=== PATIENT | female | born 1970 | race Caucasian/White ===

== ENCOUNTER 2022-06-23 15:35 | Inpatient (IN) | payer MEDICAID ==
[~2022-06-23] VITALS: Ht 160 cm; Wt 73.0 kg
[2022-06-23 15:37] VITALS: BP 117/72
--- NOTE | 2022-06-23 15:42 | NUR ---
CANDACE GUTIERREZ, VIA GURNEY TO BED 05.
--- NOTE | 2022-06-23 15:42 | NUR ---
DR PERALES AT BEDSIDE EVALUATING PT
[2022-06-23 16:00] LABS: BASOPHILS % (AUTO) 0.3 % (0.0-2.0); EOSINOPHILS % (AUTO) 0.4 % (0.0-4.0); HEMOGLOBIN 14.4 g/dL (12.0-16.0); LYMPHOCYTES # (AUTO) 0.6 K/uL (2.5-16.5); LYMPHOCYTES % (AUTO) 13.1 % (20.5-51.1); MEAN CORPUSCULAR HEMOGLOBIN 30 pg (27-31); MEAN CORPUSCULAR HGB CONC 34 g/dL (33-37); MEAN CORPUSCULAR VOLUME 86.3 fL (80-94); MONOCYTES # (AUTO) 0.3 K/uL (0.8-1.0); NEUTROPHILS # (AUTO) 3.8 K/uL (1.8-7.7); NEUTROPHILS % (AUTO) 79.2 % (42.2-75.2); PLATELET COUNT (AUTO) 300 K/uL (140-450); RED BLOOD CELL COUNT(AUTO) 4.87 MIL/uL (4.20-5.40); RED CELL DISTRIBUTION WIDTH 14.8 % (11.6-13.7); WHITE BLOOD COUNT (AUTO) 4.8 K/uL (4.8-10.8)
--- NOTE | 2022-06-23 16:00 | NUR ---
IV started, blood work obtained, handed to CPT Corrie at bedside.
[2022-06-23 16:25] LABS: ALBUMIN 3.5 g/dL (3.4-5.0); ANION GAP 10.8 (8-16); ASPARTATE AMINOTRANSFERASE 50 U/L (15-37); CARBON DIOXIDE 28.8 mmol/L (21-32); CHLORIDE 103 mmol/L (98-107); CREATININE 0.9 mg/dL (0.6-1.3); GFR ARICAN-AMERICAN 85 mL/min (>90); GLUCOSE 111 mg/dL (74-106); POTASSIUM 3.6 mmol/L (3.5-5.1); SODIUM SERUM 139 mmol/L (136-145); TOTAL BILIRUBIN 0.8 mg/dL (0.0-1.0); UREA NITROGEN, BLOOD 17 mg/dL (7-18)
--- NOTE | 2022-06-23 19:20 | NUR ---
Pt report given to ANTONELLA Allen. Transfer of care at this time.
--- NOTE | 2022-06-23 19:50 | NUR ---
SPOKE TO DARRIAN PATIENTS DAUGHTER [phone] AND UPDATED ON PATIENTS STATUS. PATIENT RQ HER CELLPHONE AND SANDALS.
--- NOTE | 2022-06-23 19:55 | NUR ---
SWAB COLLECTED AND WALKED TO LAB
--- NOTE | 2022-06-23 21:57 | NUR ---
Patient's daughter given her cell phone , zig zag spring machine operator and sandal to patient.
--- NOTE | 2022-06-23 22:18 | NUR ---
TAZ PERALES EVALUATING PATIENT.
[2022-06-23 22:22] VITALS: BP 105/44
[2022-06-23] MEDS ORDERED: SODIUM PHOS / POTASSIUM PHOS 1 PKT PDR PO PRN (22:45)
[2022-06-23] MEDS ORDERED: POTASSIUM CHLORIDE 10 MEQ TABER PO PRN (22:45)
[2022-06-23] MEDS ORDERED: MAGNESIUM OXIDE 400 MG TAB PO PRN (22:45)
[2022-06-23] MEDS ORDERED: ACETAMINOPHEN 325 MG TAB PO PRN (22:45)
[2022-06-23] MEDS ORDERED: MORPHINE SULFATE 2 MG/ML SYR IVP PRN (22:45)
[2022-06-23] MEDS ORDERED: DOCUSATE SODIUM 100 MG GELCAP PO PRN (22:45)
[2022-06-23] MEDS ORDERED: ONDANSETRON 4 MG/2 ML VIAL IM/IVP PRN (22:45)
[2022-06-23] MEDS ORDERED: HYDROcodone/APAP 5/325 MG 1 TAB TAB PO PRN (22:45)
[2022-06-23 23:08] LABS: MAGNESIUM 1.9 mg/dL (1.8-2.4); PHOSPHORUS 3.4 mg/dL (2.5-4.9)
[2022-06-23] MEDS: DEXT 5% /NACL 0.9% 1,000 ML IV SCH (23:14)
--- NOTE | 2022-06-24 02:50 | NUR ---
Patient will be admitted to care of LUBNA FULLER. Admited to MED/SURG. Will go to room 125B. Belongings list completed. Report to ERNESTO FINN. TRANSFER OF CARE.
--- NOTE | 2022-06-24 02:50 | NUR ---
REPORT GIVENT TO ERNESTO FINN. TRANSFER OF CARE.
--- NOTE | 2022-06-24 03:09 | NUR ---
The patient's care was reviewed and supervised by Yaneli Dudley RN.
[2022-06-24 06:40] LABS: BASOPHILS % (AUTO) 0.3 % (0.0-2.0); EOSINOPHILS # (AUTO) 0.1 K/uL (0-0.4); EOSINOPHILS % (AUTO) 2.2 % (0.0-4.0); HEMATOCRIT 37.4 % (36-48); HEMOGLOBIN 12.9 g/dL (12.0-16.0); LYMPHOCYTES # (AUTO) 1.5 K/uL (2.5-16.5); LYMPHOCYTES % (AUTO) 35.5 % (20.5-51.1); MEAN CORPUSCULAR HEMOGLOBIN 30 pg (27-31); MEAN CORPUSCULAR HGB CONC 35 g/dL (33-37); MEAN CORPUSCULAR VOLUME 86.4 fL (80-94); MONOCYTES # (AUTO) 0.6 K/uL (0.8-1.0); MONOCYTES % (AUTO) 13.5 % (1.7-9.3); NEUTROPHILS % (AUTO) 48.5 % (42.2-75.2); PLATELET COUNT (AUTO) 267 K/uL (140-450); RED BLOOD CELL COUNT(AUTO) 4.33 MIL/uL (4.20-5.40); RED CELL DISTRIBUTION WIDTH 14.5 % (11.6-13.7); WHITE BLOOD COUNT (AUTO) 4.2 K/uL (4.8-10.8)
--- NOTE | 2022-06-24 07:18 | NUR ---
PATIENT HAS BEEN SCREENED AND CATEGORIZED LOW NUTRITION RISK. PATIENT WILL BE SEEN WITHIN 7 DAYS OF ADMISSION. 06/30/[address]
[2022-06-24] MEDS ORDERED: PANTOPRAZOLE 40 MG INJ VIAL IVP SCH (09:00)
[2022-06-24 10:49] LABS: ANION GAP 11.4 (8-16); CARBON DIOXIDE 27.1 mmol/L (21-32); CREATININE 0.9 mg/dL (0.6-1.3); POTASSIUM 3.5 mmol/L (3.5-5.1); TOTAL BILIRUBIN 0.4 mg/dL (0.0-1.0)
[2022-06-24] MEDS: DEXT 5% /NACL 0.9% 1,000 ML IV SCH (12:41)
--- NOTE | 2022-06-24 14:56 | NUR ---
FAMILY CALLED RE PT BEING NPO. PT'S ATTENDING WAS SENT TEXT FOR F/U ON DIET.
--- NOTE | 2022-06-24 15:17 | NUR ---
PT SIGNED OUT FOR AMA. SALINE LOCK REMOVED PER PT REQUEST. PT CHANGING INTO OWN CLOTHING. PT TO BE BROUGHT TO D/C AREA AND BROUGHT HOME BY DTR. PT ADVISED TO CALL HOSPITAL IF PROBLEM OCCURS AGAIN. CONDITION STABLE. ALL BELONGINGS BEING SENT HOME W PT.
--- NOTE | 2022-06-24 15:45 | NUR ---
pt went ama at 1545. pt ambulated w DTR and NSup. to waiting area where pt was placed in private vehicle and brought home. condition stable.
== END 2022-06-24 15:45 | disposition left against medical advice (07) ==
LOC: MED 15:35 → MMU 20:31
PROVIDERS: ADMIT Hospitalist; ATTEND Hospitalist
DX: K80.20 Calculus of gallbladder without cholecystitis without obstruction (principal); E44.0 Moderate protein-calorie malnutrition; K76.0 Fatty (change of) liver, not elsewhere classified; E83.51 Hypocalcemia; E78.5 Hyperlipidemia, unspecified; Z20.822 Contact with and (suspected) exposure to COVID-19; R74.01 Elevation of levels of liver transaminase levels; Z68.28 Body mass index [BMI] 28.0-28.9, adult
CPT/HCPCS: 36415; 71045; 76705; 80053; 82150; 83690; 83735; 84100; 84484; 85025; 87081; 93005; 99285; C9113; Q0092